=== PATIENT | male | born 1985 | race Caucasian/White ===

== ENCOUNTER 2022-09-08 16:04 | Emergency (ER) | payer OTHER ==
[2022-09-08 16:40] VITALS: BP 111/74; PULSE 91; RESP 18; TEMP 98.1; BMI 21.9
[2022-09-08 19:43] LABS: MEAN PLT VOLUME 8.1 fl (7.5-11.1); RBC 4.66 M/mm3 (4.00-5.60)
[2022-09-08 20:00] LABS: BASO % 0.5 % (0-2.0); LYMPH % 48.5 % (8-40); MCHC 33.3 g/dl (32.0-35.9); MEAN CELL VOLUME 90.1 fl (80-96); MONO % 8.2 % (3.8-10.2); NEUT % 41.8 % (42.8-82.8); PLATELET COUNT 200 10^3/uL (134-434); RDW 13.8 % (11.9-15.9); WHITE BLOOD COUNT 4.3 K/mm3 (4.0-10.0)
== END 2022-09-08 21:58 | disposition home or self-care (01) ==
LOC: JERFT 16:04
DX: Z76.0 Encounter for issue of repeat prescription (principal)
CPT/HCPCS: 36415; 85025; 99283-25

== ENCOUNTER 2023-06-07 17:55 | Emergency (ER) | payer OTHER ==
[2023-06-07 18:21] VITALS: BP 117/81; PULSE 111; RESP 18; TEMP 98.8
== END 2023-06-07 21:00 | disposition short-term general hospital (02) ==
LOC: JER 17:55
DX: T74.21XA Adult sexual abuse, confirmed, initial encounter (principal); Y07.9 Unspecified perpetrator of maltreatment and neglect; Z20.822 Contact with and (suspected) exposure to COVID-19
CPT/HCPCS: 0241U-QW; 99285-25

== ENCOUNTER 2023-08-18 09:21 | Emergency (ER) | payer OTHER ==
[2023-08-18 09:27] VITALS: BP 104/67; PULSE 104; RESP 18; TEMP 97.6; BMI 20.3
== END 2023-08-18 11:23 | disposition home or self-care (01) ==
LOC: JERFT 09:21
DX: Z76.0 Encounter for issue of repeat prescription (principal); F20.9 Schizophrenia, unspecified
CPT/HCPCS: 99283-25

== ENCOUNTER 2024-03-13 14:24 | Emergency (ER) | payer OTHER ==
[2024-03-13 14:32] VITALS: BP 105/66; PULSE 84; RESP 18; TEMP 98.8; BMI 19.9
== END 2024-03-13 16:33 | disposition home or self-care (01) ==
LOC: JERFT 14:24
DX: F41.9 Anxiety disorder, unspecified (principal)
CPT/HCPCS: 99283-25